=== PATIENT | female | born 1995 ===

== ENCOUNTER 2021-05-17 09:40 | Outpatient (RCR) | payer OTHER, SELFPAY | END 2021-05-18 07:28 | disposition home or self-care (01) | LOC: HO.PHPA 09:40 | PROVIDERS: Visit Provider Psychiatry & Neurology Psychiatry | DX: F31.9 Bipolar disorder, unspecified (principal); F41.9 Anxiety disorder, unspecified; F90.9 Attention-deficit hyperactivity disorder, unspecified type ==